=== PATIENT | female | born 1965 | race Caucasian/White ===

== ENCOUNTER → 2019-09-01 14:27 | Outpatient (BNVA) | payer BC, SELFPAY | PROVIDERS: Family Provider Family Medicine; PCP Family Medicine; Visit Provider Nurse Practitioner Family | DX: J43.9 Emphysema, unspecified (principal); J40 Bronchitis, not specified as acute or chronic; J30.89 Other allergic rhinitis; F17.200 Nicotine dependence, unspecified, uncomplicated | CPT/HCPCS: 71046 ==

== ENCOUNTER 2019-11-17 10:29 | Outpatient (CLI) | payer BC, SELFPAY ==
--- NOTE | 2019-11-17 11:00 | USCV_ITS ---
QureshiAkua cheema Age: 54 Gender: F : 1965 Exam Date: 11/17/2019 10:47 Ordering Phys: Aditya Paul Technologist: Audra Padilla Exam Location: [facility] Indication: Right calf pain HISTORY: History of deep venous thrombosis. Right calf pain. PROCEDURES: Examined were the right greater saphenous, common femoral, femoral, profunda, popliteal, posterior tibial veins, and peroneal trunk.. FINDINGS: DVT noted in the RIGHT PTV, soleal vein, and peroneal veins extending from mid calf to posterior knee. No SVT visuzlied at this time. No DVT from the CFV to the popliteal vein. CONCLUSIONS Acute below the knee DVT on the right. Report called at time of exam. Dr. Marisol Graf DO (Electronically Signed) Final Date: 17 November 2019 13:08 S
== END 2019-11-17 10:30 | disposition home or self-care (01) ==
LOC: RAD 10:33 → RADWPI 10:34
PROVIDERS: Family Provider Family Medicine; PCP Nurse Practitioner; Visit Provider Nurse Practitioner
DX: M79.661 Pain in right lower leg (principal); I82.4Z1 Acute embolism and thrombosis of unspecified deep veins of right distal lower extremity
CPT/HCPCS: 93971

== ENCOUNTER → 2021-02-27 11:35 | Outpatient (BNVA) | payer BC, SELFPAY | PROVIDERS: Family Provider Family Medicine; PCP Nurse Practitioner; Visit Provider Nurse Practitioner Family | DX: Z20.822 Contact with and (suspected) exposure to COVID-19 (principal) | CPT/HCPCS: 87635 ==

== ENCOUNTER 2021-05-30 22:07 | Inpatient (IN) | payer MEDICAID, SELFPAY ==
[2021-05-30 22:11] VITALS: BP 149/85; PULSE 93; RESP 16; TEMP 36.6; O2SAT 97; BMI 33.7
--- NOTE | 2021-05-30 22:23 | W.ED.ABDPA2 ---
HPI - Abdominal Pain General: Chief Complaint: Abdominal Pain Stated Complaint: abd pain Time Seen by Provider: 05/30/21 22:10 Source: patient History of Present Illness: HPI narrative: 56-year-old female states been having right upper quadrant abdominal pain over the last 2 days got much worse tonight states pain tonight was an 8 out of 10 worse with movement and palpation she has had nausea. She denies any fevers denies any diarrhea or constipation. Denies any chest pain denies any radiation of the pain. MD elicited complaint: abdominal pain Associated Symptoms: Denies chills, dysuria and fever(s) Review of Systems Const: Denies: fever(s), chills, body aches or change in appetite Eyes: Denies: blurry vision or eye discomfort ENMT: Denies: throat pain or dental pain Card: Denies: chest pain Resp: Denies: dyspnea GI: Reports: abdominal pain : Denies: dysuria Musc: Denies: neck pain or back pain Skin/Breast: Denies: rash Neuro: Denies: headache(s) Psych: Denies: depression Calvin/Lymph: Denies: easy bruising All/Imm: Denies: urticaria PFSH ED PFSH: Medical History Anxiety and depression Hx pulmonary embolism OCD (obsessive compulsive disorder) Osteoarthritis Pernicious anemia Surgical History Hx of tubal ligation Family History Family/Other Diabetes Hypertension Cancer Sister Alcohol abuse Brother Alcohol abuse Social History Smoking and tobacco status: current every day smoker cigarettes Packs smoked per day: 1 Years cigarettes smoked: 25 Second hand smoke exposure: Yes Alcohol intake: never Marital status: Legally Current gender identity: Female Physical Exam Const: COMMON NORMALS: no acute distress, patient oriented x3 and healthy appearing HENMT: COMMON NORMALS: normocephalic and atraumatic HEAD & SCALP: normocephalic and atraumatic Eye: COMMON NORMALS: Equal, round and reactive pupils present and EOMs intact bilaterally PUPIL: Yes Equal, round and reactive pupils present Neck/C-Spine: COMMON NORMALS: full ROM and supple Chest: COMMONS NORMALS: normal inspection of the chest and normal palpation of entire chest wall Resp: COMMON NORMALS: normal respiratory effort, No retractions, No use of accessory muscles and clear to auscultation bilaterally AUSCULTATION: clear to auscultation bilaterally Cardio: COMMON NORMALS: regular rate, regular rhythm and No murmurs present (Cardio) RATE: regular rate RHYTHM: regular rhythm GI: COMMON NORMALS: Normal to inspection, nondistended, normoactive bowel sounds present, Soft to palpation and no masses PALPATION: Yes Soft to palpation and Yes Tenderness to palpation present (GI) Details: RUQ Extremity: COMMON NORMALS: normal to inspection and full ROM Neuro: COMMON NORMALS: patient oriented x3, moves all extremities and no focal motor deficits Psych: COMMON NORMALS: mental status grossly normal, Normal thought process present and cooperative THOUGHT PROCESS: Normal thought process present Skin: COMMON NORMALS: no rashes or lesions noted and no wounds GENERAL SKIN EXAM: no rashes or lesions noted Course Vital Signs: Vital signs: Vital Signs Temperature 97.9 F 05/30/21 22:11 Pulse Rate 74 05/31/21 00:03 Respiratory Rate 18 05/31/21 00:03 Blood Pressure 128/71 05/31/21 00:03 Pulse Oximetry 98 05/31/21 00:03 MDM - Abdominal Pain MDM Narrative: Medical decision making narrative: Patient presents with acute cholecystitis causing her abdominal pain liver enzyme bili Robert is normal no sign of common bile duct obstruction patient started on IV antibiotics spoke to surgeon Dr. Carr and will admit. Lab Data: Labs: Lab Results 05/30/21 05/30/21 05/30/21 22:25 22:29 22:29 WBC 24.5 10^3/uL H 10 ^3/uL (4.0-10.0) RBC 5.02 10^6/uL 10^6 /uL (4.1-5.3) Hgb 15.1 g/dL g/dL (11.5-15.3) Hct 45.3 % % (37.0-47.0) MCV 90.2 fl fl (81-99) MCH 30.1 pg pg (28.0-34.0) MCHC 33.3 g/dL g/dL (30.0-36.0) RDW 13.5 % % (12.1-15.1) Plt Count 209 10^3/cmm 10^3 /cmm (130-400) MPV 11.5 fL H fL (7.4-10.4) Neut % (Auto) 76.2 % % Lymph % (Auto) 13.9 % % [place] % (Auto) 7.6 % % Eos % (Auto) 1.5 % % Baso % (Auto) 0.4 % % Neut # (Auto) 18.67 10^3/uL H 1 0^3/uL (1.8-7.7) Lymph # (Auto) 3.4 10^3/uL 10^3/ uL (0.8-4.8) [place] # (Auto) 1.9 10^3/uL H 10^ 3/uL (0.2-0.9) Eos # (Auto) 0.4 10^3/uL 10^3/ uL (0.0-0.8) Baso # (Auto) 0.1 10^3/uL 10^3/ uL (0.0-0.1) Nucleated RBC % (a uto) 0 % % Nucleated RBCs # 0.0 /100WBC /100W BC Sodium 135 mmol/L L mmol /L (136-145) Potassium 3.8 mmol/L mmol/L (3.5-5.1) Chloride 100 mmol/L mmol/L (98-107) Carbon Dioxide 22 mmol/L mmol/L (22-29) Anion Gap 16.8 (5-19) BUN 10 mg/dL mg/dL (6-20) Creatinine 0.6 mg/dL mg/dL (0.5-0.9) GFR Calculation 104.2 mL/min mL/m in (90-130) Glucose 124 mg/dL H mg/dL (65-115) Calculated Osmolal ity 280 mOsm/kg L mOs m/kg (285-295) Calcium 9.0 mg/dL mg/dL (8.5-10.5) Total Bilirubin 0.6 mg/dL mg/dL (0.15-1.2) AST 14 U/L U/L (0-32) ALT 15 U/L U/L (0-33) Alkaline Phosphata se 98 IU/L IU/L (35-105) Total Protein 6.7 g/dL g/dL (6.6-8.7) Albumin 4.1 g/dL g/dL (3.5-5.2) Globulin 2.6 g/dL g/dL (1.3-4.6) Lipase 14 U/L U/L (13-60) Urine Color Yellow (Yellow) Urine Appearance Clear (CLEAR) Urine pH 6.5 (5-7) Ur Specific Gravit y 1.015 (1.005-1.030) Urine Protein Neg (Negative) Urine Glucose (UA) Norm (Normal) Urine Ketones Negative (Negative) Urine Blood Neg (Negative) Urine Nitrate Negative (Negative) Urine Bilirubin Neg (Negative) Urine Urobilinogen Norm mg/dL mg/dL (Negative) Ur Leukocyte Charity ase Negative (Negative) Imaging Data ^: CT Abd/Pel: Attestation: I personally reviewed and interpreted this imaging study as follows: Radiologist's impression: [address] [address] [address] Scan Report Signed Patient: Akua Qureshi Unit #: [id number] : 1965 Age/Sex: 56 / F ADM Date: 05/30/21 Loc: ER Room/Bed: Attending Dr: Ordering Provider/Ordering MD: Mau Ochoa MD Date of Service: 05/30/21 Procedure(s): CT abdomen pelvis w con* [id number] Accession Number(s): [id number] Report Number: [id number] PROCEDURE INFORMATION: Exam: CT Abdomen And Pelvis With Contrast Exam date and time: 05/30/2021 10:29 PM Age: 56 years old Clinical indication: Nausea and vomiting; Abdominal pain; Generalized; Patient HX: Abd pain with n/v x 3 days TECHNIQUE: Imaging protocol: Computed tomography of the abdomen and pelvis with contrast. Radiation optimization: All CT scans at this facility use at least one of these dose optimization techniques: automated exposure control; mA and/or kV adjustment per patient size (includes targeted exams where dose is matched to clinical indication); or iterative reconstruction. Contrast material: OMNI 300; Contrast volume: 95 ml; Contrast route: INTRAVENOUS (IV); COMPARISON: CTA Chest w Abd/Pel w* 06/09/2015 12:25 AM RADIATION DOSE METRICS: Total DLP (mGy-cm): 1838.94 FINDINGS: Liver: Circumscribed hypodensity in the right liver lobe is too small to characterize but is most likely a cyst. No follow-up imaging is recommended. Gallbladder and bile ducts: 1.6 cm calcified stone in the gallbladder neck. Severe gallbladder wall edema with mucosal enhancement. The bile ducts are normal. Pancreas: Normal. No ductal dilation. Spleen: Normal. No splenomegaly. Adrenal glands: Normal. No mass. Kidneys and ureters: Normal. No hydronephrosis. Stomach and bowel: Mild diverticulosis of the sigmoid colon. No diverticulitis. Appendix: The appendix is visualized and is normal. Intraperitoneal space: Unremarkable. No free air. No significant fluid collection. Vasculature: Unremarkable. No abdominal aortic aneurysm. Lymph nodes: Unremarkable. No enlarged lymph nodes. Urinary bladder: Unremarkable as visualized. Reproductive: Unremarkable as visualized. Bones/joints: Unremarkable. No acute fracture. Soft tissues: Unremarkable. CT/CT abdomen pelvis w con* [id number] IMPRESSION: 1. Acute cholecystitis with gallstone in the gallbladder neck. Radiation Dose CTDIVOL = (mGy): DLP = 1838.94 (mGy-cm) Dictated By: Tyler Baird Signed By: Tyler Baird Signed Date/Time: 05/30/21 0283 EKG Data ^: EKG 1: Attestation: I personally reviewed and interpreted this EKG as follows: EKG interpretation date: 05/30/21 EKG interpretation time: 22:19 Interpretation: nsr hr [address] or t wave abnormalities qrs 85 qtc 402 Discharge Plan Discharge Patient Disposition: Admitted As Inpatient Clinical Impression: Cholecystitis Condition: Stable Coding Level of Care Code ED Technical Testing Engineer for Chg Fwd Exam Comprehensive
--- NOTE | 2021-05-30 22:29 | CTR_ITS ---
PROCEDURE INFORMATION: Exam: CT Abdomen And Pelvis With Contrast Exam date and time: 05/30/2021 10:29 PM Age: 56 years old Clinical indication: Nausea and vomiting; Abdominal pain; Generalized; Patient HX: Abd pain with n/v x 3 days TECHNIQUE: Imaging protocol: Computed tomography of the abdomen and pelvis with contrast. Radiation optimization: All CT scans at this facility use at least one of these dose optimization techniques: automated exposure control; mA and/or kV adjustment per patient size (includes targeted exams where dose is matched to clinical indication); or iterative reconstruction. Contrast material: OMNI 300; Contrast volume: 95 ml; Contrast route: INTRAVENOUS (IV); COMPARISON: CTA Chest w Abd/Pel w* 06/09/2015 12:25 AM RADIATION DOSE METRICS: Total DLP (mGy-cm): 1838.94 FINDINGS: Liver: Circumscribed hypodensity in the right liver lobe is too small to characterize but is most likely a cyst. No follow-up imaging is recommended. Gallbladder and bile ducts: 1.6 cm calcified stone in the gallbladder neck. Severe gallbladder wall edema with mucosal enhancement. The bile ducts are normal. Pancreas: Normal. No ductal dilation. Spleen: Normal. No splenomegaly. Adrenal glands: Normal. No mass. Kidneys and ureters: Normal. No hydronephrosis. Stomach and bowel: Mild diverticulosis of the sigmoid colon. No diverticulitis. Appendix: The appendix is visualized and is normal. Intraperitoneal space: Unremarkable. No free air. No significant fluid collection. Vasculature: Unremarkable. No abdominal aortic aneurysm. Lymph nodes: Unremarkable. No enlarged lymph nodes. Urinary bladder: Unremarkable as visualized. Reproductive: Unremarkable as visualized. Bones/joints: Unremarkable. No acute fracture. Soft tissues: Unremarkable. CT/CT abdomen pelvis w con* [id number] IMPRESSION: 1. Acute cholecystitis with gallstone in the gallbladder neck. Radiation Dose CTDIVOL = (mGy): DLP = 1838.94 (mGy-cm)
[2021-05-30 22:30] LABS: Add Urine Microscopic? NO; Charge for UA Resulting for Rev
[2021-05-30 22:33] LABS: Basophils # 0.1 10^3/uL (0.0-0.1); Basophils % 0.4 %; Eosinophils # 0.4 10^3/uL (0.0-0.8); Eosinophils % 1.5 %; Hematocrit 45.3 % (37.0-47.0); Hemoglobin 15.1 g/dL (11.5-15.3); Lymphocytes # 3.4 10^3/uL (0.8-4.8); Lymphocytes % 13.9 %; Mean Corpuscular HGB Conc 33.3 g/dL (30.0-36.0); Mean Corpuscular Hemoglobin 30.1 pg (28.0-34.0); Mean Corpuscular Volume 90.2 fl (81-99); Mean Platelet Volume 11.5 fL (7.4-10.4); Monocytes # 1.9 10^3/uL (0.2-0.9); Monocytes % 7.6 %; Neutrophils # 18.67 10^3/uL (1.8-7.7); Neutrophils % 76.2 %; Nucleated Red Blood Cells % 0 %; Platelet Count 209 10^3/cmm (130-400); Red Blood Count 5.02 10^6/uL (4.1-5.3); Red Cell Distribution Width 13.5 % (12.1-15.1); White Blood Count 24.5 10^3/uL (4.0-10.0)
[2021-05-30 22:36] VITALS: RESP 18; O2SAT 99
[2021-05-30 22:36] LABS: Bilirubin Urine Neg (Negative); Blood Urine Neg (Negative); Glucose Urine UA Norm (Normal); Ketones Urine Negative (Negative); Leukocyte Esterase Urine Negative (Negative); Nitrate Urine Negative (Negative); Protein Urine Neg (Negative); Specific Gravity, Urine 1.015 (1.005-1.030); Urine Appearance Clear (CLEAR); Urine Color Yellow (Yellow); Urobilinogen Urine Norm (Negative); pH Urine 6.5 (5-7)
[2021-05-30] MEDS: ondansetron 2 mg/ML SDV 2 mL 4 MG IVP (22:36)
[2021-05-30] MEDS: HYDROmorphone 1 mg/mL INJ 1 mL IVP ×2 (22:36→23:58)
[2021-05-30] MEDS: sodium chloride 0.9% 1,000 ML 999 ML IV (22:36)
[2021-05-30] MEDS: iohexol 300 mg/mL 100 mL Btl IV (22:43)
[2021-05-30 22:49] LABS: Alanine Aminotransferase 15 U/L (0-33); Albumin Level 4.1 g/dL (3.5-5.2); Alkaline Phosphatase 98 IU/L (35-105); Anion Gap 16.8 (5-19); Aspartate Amino Transferase 14 U/L (0-32); Blood Urea Nitrogen 10 mg/dL (6-20); Carbon Dioxide 22 mmol/L (22-29); Chloride 100 mmol/L (98-107); Globulin 2.6 g/dL (1.3-4.6); Glomerular Filtration Rate 104.2 mL/min (90-130); Glucose 124 mg/dL (65-115); Lipase 14 U/L (13-60); Osmolality Calculated 280 mOsm/kg (285-295); Potassium 3.8 mmol/L (3.5-5.1); Sodium 135 mmol/L (136-145); Total Bilirubin 0.6 mg/dL (0.15-1.2); Total Protein 6.7 g/dL (6.6-8.7)
[2021-05-30 23:12] LABS: Slide Review Slide Review Perform
[2021-05-30] MEDS: levofloxacin-dextrose 5 % 750 MG/150 ML PREMIX 100 MG IV (23:48)
[2021-05-30 23:58] VITALS: RESP 18; O2SAT 98
[2021-05-31] VITALS (32 sets, daily range): BP systolic 101–161; BP diastolic 65–97; PULSE 74–120; RESP 14–38; TEMP 36.4–37.6; O2SAT 90–99; BMI 34.3
[2021-05-31 00:25] LABS: INR 0.94 (0.8-1.2)
[2021-05-31] MEDS: sodium chloride 0.9% 1,000 ML 100 ML IV (01:30)
[2021-05-31] MEDS: morphine 4 mg/mL SDV 1 mL IVP (02:05)
[2021-05-31] MEDS: ondansetron 2 mg/ML SDV 2 mL 4 MG IVP ×3 (02:06→15:48)
--- NOTE | 2021-05-31 04:20 | P.HP_ITS ---
Providers/Chief Complaint Admitting Physician: Kj Carr MD Primary Care Provider: Aditya Paul, [employer] Chief Complaint: abd pain History of Present Illness Akua Qureshi is a 56 year old female who says that she developed upper abdominal pain that went all the way around to her back on both sides Saturday evening (3 days ago). She had some nausea and vomiting the first night without any evidence of hematemesis. She says the nausea and vomiting have actually improved but her pain has continued to intensify. She does not think she has had a fever but she said she felt a little bit cold yesterday and so she took several warm showers. She has had diarrhea but said it is normal for her to have diarrhea at least 5 days out of a week and this has been going on for year s. She got to the point where the pain was unbearable and so she came into the emergency department. A CAT scan showed changes consistent with acute calculus cholecystitis. The patient says she has not noticed any recent food intolerances. She has not had trouble eating. In short, it does not sound like she has had any kind of reliable history of ongoing biliary colic. I did notice that she was found to have cholelithiasis on a CAT scan back in 2014. Review of Systems General: Reports: 10 or more systems reviewed and unremarkable except in HPI and below Const: Reports: other ( [place] somewhat cold yesterday but never took my temp erature ); Denies: fever(s) GI: Reports: abdominal pain, nausea, vomiting and diarrhea ( Normal for me to usually have this ); Denies: hematemesis or coffee ground emesis Psych: Reports: anxiety and depression Medications/Allergies Home Medications Medication Instructions Recorded Confirmed Last Taken Type melatonin 5 mg capsule mg PO 08/31/20 02/27/21 Unknown History montelukast 10 mg tablet 10 mg PO DAILY #30 tab 08/31/20 02/27/21 Unknown Rx chlorpheniramine maleate 4 mg 4 mg PO Q6H PRN 02/27/21 02/27/21 Unknown History tablet diphenhydramine HCl 25 mg capsule 25 mg PO .hs PRN cap 02/27/21 02/27/21 Unknown History Allergies Allergy/AdvReac Type Severity Reaction Status Date / Time Penicillins Allergy Unknown ALGY-Hives Verified 02/27/21 09:38 amoxicillin Allergy Roxy Verified 05/30/21 22:11 PFSH Acute PFSH: Medical History (Updated 05/31/21 @ 04:23 by Kj Carr MD) Anxiety and depression Hx pulmonary embolism multiple blood clots in the past OCD (obsessive compulsive disorder) Osteoarthritis Pernicious anemia Right calf pain Surgical History (Updated 05/31/21 @ 04:21 by Kj Carr MD) Hx of tubal ligation Pharyngeal abscess Family History Family/Other Diabetes Hypertension Cancer Sister Alcohol abuse Brother Alcohol abuse Social History Smoking and tobacco status: current every day smoker cigarettes Packs smoked per day: 1 Years cigarettes smoked: 25 Second hand smoke exposure: Yes Alcohol intake: never Marital status: Legally Current gender identity: Female Vitals/I&O/Wt Last Vital Signs Temp 97.5 F L 05/31/21 01:19 Pulse 96 05/31/21 01:19 Resp 18 05/31/21 02:05 BP 152/82 05/31/21 01:19 Pulse Ox 96 05/31/21 01:19 05/30/21 05/30/21 05/31/21 14:59 22:59 06:59 Intake Total 1150 / 1150 Balance 1150 / 1150 Weight last 48 hrs Weight 232 lb 6 oz Weight 229 lb Physical Exam Narrative: EXAM NARRATIVE: The patient was encountered in her hospital room. She is on the bed and appears somewhat uncomfortable. She tells me that the hydromorphone she got in the emergency room worked much better for her than the morphine she is getting on the floor. The pupils seem equal. No carotid bruits are heard. The lungs are clear anteriorly. The heart is regular. The abdomen is moderately obese and bowel sounds are few. The patient has her maximum point of tenderness in the right upper quadrant somewhat laterally with a positive Ying's sign. She has mild tenderness in the epigastrium. No obvious masses are palpated anywhere. The extremities reveal no edema. Neurologically the patient appears to be grossly intact. Data : 05/30/21 22:29 05/30/21 22:29 Other Labs: Laboratory Tests 05/30/21 22:29 Total Bilirubin 0.6 AST 14 ALT 15 Alkaline Phosphatase [address] Abd/Pel: Radiologist's impression: CT abdomen/pelvis 05/30/2021 IMPRESSION: 1. Acute cholecystitis with gallstone in the gallbladder neck. A&P Assessment and plan (1) Acute cholecystitis due to biliary calculus: CT reviewed. I agree with the assessment of acute cholecystitis. The patient's exam is certainly consistent with this, as well. I discussed gallbladder disease and gallbladder surgery with the patient in some detail. I have recommended a cholecystectomy. Surgical risks of bleeding, internal organ injury, infection, etc. were all gone over. She seems to understand and is agreeable to proceeding. I will change the patient to hydromorphone for pain control. She already got a dose of Levaquin in the emergency room tonight. The patient will be kept n.p.o. and we will try to get into the operating room as soon as we can today. Status: Acute Attestations Medical Necessity Statement*: Based on my medical assessment, presenting symptoms, medical accuity and consideration of surgical therapy, I expect this patient will require treatment in the hospital for a period spanning at least 2 midnights. Coding Level of Care Code Acute Cook Syrup Maker for Sly Narayanan Diagnoses Acute cholecystitis due to biliary calculus K80.00
[2021-05-31] MEDS: HYDROmorphone 1 mg/mL INJ 1 mL IVP (04:22)
--- NOTE | 2021-05-31 07:47 | P.ANESASSM_ITS ---
Pre-Anesthetic Assessment Pre-Anesthetic Assessment: Height/Weight: Height 1.75 m Weight 105.404 kg Temp Pulse Resp BP Pulse Ox 97.9 F 98 19 H 161/97 96 05/31/21 04:26 05/31/21 04:26 05/31/21 04:26 05/31/21 04:26 05/31/21 04:26 Preop Diagnosis: Cholecystitis Proposed Procedure: Operation Date: 05/31/21 09:00 Proposed Procedures p Laparoscopic Cholecystectomy(Not Applicable) - Kj Carr MD Familial anesthetic complications: None Was Beta Bernardo taken within 24 hours: N/A Was Clonidine taken within 24 hours: N/A Last intake: > 8 hrs, but still vomiting Social: Social History: Tobacco and No alcohol Exam: Pre-Anes Outpt Exam: alert, oriented x 3, clear to auscultation bilaterally and regular rate & rhythm Additional Exam Findings (including area of procedure): HR 103 Airway: Cervical ROM: WNL MP: 3 Dentition: False Pulmonary: Comments: hx PE in past, not on chronic anticoagulation CV/HEM: CV/HEM: Anemia (pernicious) Anesthetic Plan: ASA status: 3 Anesthesia: General Other: RSI Risk of > 500 ml blood loss (7ml/kg in children): No Meds/Allergies Current Medications: Current Medications Generic Name Dose Route Start Last Admin Trade Name Freq PRN Reason Stop Dose Admin Hydromorphone HCl 1 mg 05/31/21 04:15 05/31/21 04:22 Hydromorphone 1 Mg/Ml Inj 1 Ml IVP 1 mg Q2H PRN Administration PAIN Sodium Chloride 1,000 mls @ 100 m ls/hr 05/31/21 00:50 05/31/21 01:30 Sodium Chloride 0.9% IV 100 mls/hr .Q10H JENI Administration Ondansetron HCl 4 mg 05/31/21 00:50 05/31/21 07:41 Ondansetron 2 Mg /Ml Sdv 2 Ml IVP 4 mg Q6H PRN Administration NAUSEA AND VOMITI NG PFSH Anesthesia PFSH: Medical History (Updated 05/31/21 @ 07:47 by Kj Carr MD) Anxiety and depression Diverticulosis Hx pulmonary embolism multiple blood clots in the past OCD (obsessive compulsive disorder) Osteoarthritis Pernicious anemia Right calf pain Surgical History (Updated 05/31/21 @ 04:21 by Kj Carr MD) Hx of tubal ligation Pharyngeal abscess Family History Family/Other Diabetes Hypertension Cancer Sister Alcohol abuse Brother Alcohol abuse Social History Smoking and tobacco status: current every day smoker cigarettes Packs smoked per day: 1 Years cigarettes smoked: 25 Second hand smoke exposure: Yes Alcohol intake: never Marital status: Legally Current gender identity: Female Data Anesthesia CBC & Chem 7: 05/30/21 22:29 05/30/21 22:29 Other Labs: Laboratory Results - last 48 hr 05/30/21 05/30/21 05/30/21 22:25 22:29 22:29 WBC 24.5 H RBC 5.02 Hgb 15.1 Hct 45.3 MCV 90.2 MCH 30.1 MCHC 33.3 RDW 13.5 Plt Count 209 MPV 11.5 H Neut % (Auto) 76.2 Lymph % (Auto) 13.9 [place] % (Auto) 7.6 Eos % (Auto) 1.5 Baso % (Auto) 0.4 Neut # (Auto) 18.67 H Lymph # (Auto) 3.4 [place] # (Auto) 1.9 H Eos # (Auto) 0.4 Baso # (Auto) 0.1 Nucleated RBC % (auto) 0 Nucleated RBCs # 0.0 PT INR Sodium 135 L Potassium 3.8 Chloride 100 Carbon Dioxide 22 Anion Gap 16.8 BUN 10 Creatinine 0.6 GFR Calculation 104.2 Glucose 124 H Calculated Osmolality 280 L Calcium 9.0 Total Bilirubin 0.6 AST 14 ALT 15 Alkaline Phosphatase 98 Total Protein 6.7 Albumin 4.1 Globulin 2.6 Lipase 14 Urine Color Yellow Urine Appearance Clear Urine pH 6.5 Ur Specific [place] 1.015 Urine Protein Neg Urine Glucose (UA) Norm Urine Ketones Negative Urine Blood Neg Urine Nitrate Negative Urine Bilirubin Neg Urine Urobilinogen Norm Ur Leukocyte Esterase Negative 05/30/21 22:29 WBC RBC Hgb Hct MCV MCH MCHC RDW Plt Count MPV Neut % (Auto) Lymph % (Auto) [place] % (Auto) Eos % (Auto) Baso % (Auto) Neut # (Auto) Lymph # (Auto) [place] # (Auto) Eos # (Auto) Baso # (Auto) Nucleated RBC % (auto) Nucleated RBCs # PT 12.90 INR 0.94 Sodium Potassium Chloride Carbon Dioxide Anion Gap BUN Creatinine GFR Calculation Glucose Calculated Osmolality Calcium Total Bilirubin AST ALT Alkaline Phosphatase Total Protein Albumin Globulin Lipase Urine Color Urine Appearance Urine pH Ur Specific [place] Urine Protein Urine Glucose (UA) Urine Ketones Urine Blood Urine Nitrate Urine Bilirubin Urine Urobilinogen Ur Leukocyte Esterase Cardiac Studies: No Data to Display
[2021-05-31] MEDS: sodium chloride 0.9% 1,000 ML 30 ML IV (08:00)
--- NOTE | 2021-05-31 09:46 | P.OP_ITS ---
Operative Report Date of procedure: May 31, 2021 Pre-op Diagnosis: Acute calculus cholecystitis. Post-op diagnosis: same Procedure Done: Laparoscopic cholecystectomy. Specimens removed/disposition: 1. Bile from gallbladder lumen sent for Gram stain and culture. 2. Gallbladder. Surgeon: Kj Carr Anesthesia: General Estimated blood loss (mL): 5 Complications: None. Condition: stable Disposition: PACU Procedure: The patient was brought to the Operating Room and was placed in a supine position on the Operating Room table. General endotracheal anesthesia was induced. The abdomen was prepped and draped in a sterile fashion. A small vertical incision was carried out in the superior aspect of the umbilicus. Blunt dissection was carried out down to the fascia, which was grasped with a Evgeny clamp. A stay suture of 0 Vicryl was placed on either side of the midline and the midline fascia was incised. The underlying peritoneum was opened bluntly and the Bc port was placed directly into the peritoneal cavity and was held in place with the inflatable balloon. The peritoneal cavity was insufflated with carbon dioxide. The laparoscope was used to inspect the abdominal cavity. No gross abnormalities were initially noted. A 5 millimeter port was placed in the epigastrium under direct vision. Two 5-millimeter ports were placed on the right side of the abdomen under direct vision. The omentum was rolled back and the gallbladder was identified. It had changes typical of acute cholecystitis with an inflamed and edematous gallbladder wall. The gallbladder was palpated with a grasper and was found to be very distended. Approximately 50 mL of dark thick bile were aspirated from the gallbladder lumen using a laparoscopic needle. Some of this was sent for Gram stain and culture. The gallbladder was then able to be grasped and elevated. A 5 mm tenaculum grasper had to be obtained in order to grasp and hold the infundibulum, however. Blunt dissection and hydrodissection were carried out in the infundibular region of the gallbladder and the cystic duct and cystic artery were identified. The gallbladder was partially removed from the liver bed using cautery and the spatula to confirm the anatomy before the structures were clipped and divided. All of the tissue was very edematous as expected. The gallbladder was then removed from the liver bed using cautery and the spatula. After the gallbladder had been removed from the liver bed, the laparoscope was moved to the epigastric port and the gallbladder was removed from the peritoneal cavity through the umbilical port site after being placed in a laparoscopic bag. The stay sutures of Vicryl were tied to each other at the umbilicus, closing the defect so that it was airtight. The perihepatic spaces were then extensively irrigated with saline and the liver bed was reinspected. No ongoing problems were seen. The remaining ports were removed from the abdominal wall and the pneumop eritoneum was evacuated. All skin incisions were closed using inverted interrupted sutures of 4-0 Vicryl. Benzoin and Steri-Strips were placed over the incisions and Band-Aids followed. The patient was taken to the Recovery Area in stable condition postoperatively.
--- NOTE | 2021-05-31 09:59 | PC.CHAP ---
Pastoral Care Encounter/Spiritual Assessment Type of Contact [] Declined forensic chemist visit [] Patient/Family/Request visit [] Outpatient visit [] Follow-up visit [] Physician referral [] Code/Alert [x] Routine visit [] Staff referral [] Actively dying [] Patient sleeping [] Family support [] [x] Out of room [] Palliative care [] [] Receiving care in room [] Pre-surgical visit [] Trauma [] Long length of stay [] ICU visit [] Other: Relational/Emotional Strength [] Patient feels connected with others/family/visitors/staff [] Distress [] Loneliness/isolation [] Abandonment Spirituality of Patient [] Person of Prachi [] Attends Sabianism of their Parchi [] Believes in Prayer [] Reads Bible or Congregation materials [] There are Spiritual issues to be addressed Mother'S Helper Interventions [] Prayer [] Active listening [] Non-anxious presence [] Spiritual/emotional support [] Crisis/trauma care [] Spiritual counseling [] Bereavement support [] Provided bereavement packet [] Provided Bible/devotional materials [] Provided toy/stuffed animal, coloring book to patient or family member [] Provided Communion [] Anointing/[place] [] Salvation [] Completed spiritual assessment [] Other: Impact on Illness or Injury [] Angry [] Fearful [] Anxious [] Often cries [] Exhaustion [] Unable to work [] Unable to attend muslim [] Unable to walk/stand [] Unable to read [] Unable to drive [] Unable to eat/drink [] Unable to sleep [] Unable to be with family [] Patient intubated [] Other: Summary Time spent with patient
[2021-05-31] MEDS: fentaNYL 50 mcg/mL INJ 2mL IVP ×2 (10:14→10:26)
[2021-05-31] MEDS: heparin 5,000 unit/mL INJ 1 mL 5000 UNIT SUBCUT ×2 (11:50→22:56)
[2021-05-31] MEDS: D5-NS 0.45% + KCL 20 mEq 20 MEQ/1,000 ML BAG 100 MEQ IV (11:50)
[2021-05-31] MEDS: levofloxacin-dextrose 5 % 500 MG/100 ML PREMIX 100 MG IV (11:59)
[2021-05-31] MEDS: metroNIDAZOLE IV 500 MG/100 ML PREMIX 100 MG IV ×2 (12:00→19:23)
[2021-05-31] MEDS: levalbuterol 0.63 mg/3 mL Neb INHALATION ×4 (13:00→23:14)
--- NOTE | 2021-05-31 14:41 | ANE.PACU2 ---
Inpatient post-anesthesia follow up: Airway intact: Yes Vital signs: Temperature 98.8 F Pulse Rate [Left] 74 Pulse Rate 113 Respiratory Rate 17 Blood Pressure [Le ft Arm] 128/71 Blood Pressure 111/70 Pulse Oximetry 93 Oxygen Delivery Me thod Room Air Oxygen Flow Rate 2 Fraction of Inspir ed Oxygen Hydration adequate: Yes Nausea and vomiting: No Pain level: 2 Mental status: Baseline
--- NOTE | 2021-05-31 15:03 | PC.PHAR ---
pt states she takes care of her own medications-pt states she takes singulair ext med history shows last filled 01/20/21 pt states she [facility]
[2021-05-31] MEDS: HYDROcodone-acetaminophen 5-325 mg Tablet PO ×2 (15:46→20:55)
[2021-05-31] MEDS: famotidine 20 mg/2 mL INJ IVP (21:38)
--- NOTE | 2021-05-31 22:48 | PC.NURSE ---
Patients fluids were turned off during the day d/t patient drinking a lot of fluids, the patients has continue to drink well and is tolerated it ok, the fluids are still not running at this time. Dr. Carr would be ok with this since the patient is drinking well.
[2021-06-01] VITALS: BP 106/56; PULSE 100; RESP 18; TEMP 37; O2SAT 95
[2021-06-01] MEDS: HYDROcodone-acetaminophen 5-325 mg Tablet PO ×2 (02:33→07:53)
[2021-06-01] MEDS: metroNIDAZOLE IV 500 MG/100 ML PREMIX 100 MG IV (03:45)
[2021-06-01 04:00] VITALS: BP 113/74; PULSE 86; RESP 18; TEMP 36.4; O2SAT 99
[2021-06-01 04:06] VITALS: PULSE 85; RESP 16; O2SAT 93
[2021-06-01] MEDS: levalbuterol 0.63 mg/3 mL Neb INHALATION ×2 (04:06→08:22)
[2021-06-01 06:09] LABS: Basophils % 0.2 %; Eosinophils # 0.2 10^3/uL (0.0-0.8); Eosinophils % 0.9 %; Hematocrit 38.1 % (37.0-47.0); Hemoglobin 12.4 g/dL (11.5-15.3); Lymphocytes # 4.2 10^3/uL (0.8-4.8); Lymphocytes % 22.9 %; Mean Corpuscular HGB Conc 32.5 g/dL (30.0-36.0); Mean Corpuscular Hemoglobin 29.7 pg (28.0-34.0); Mean Corpuscular Volume 91.1 fl (81-99); Mean Platelet Volume 12.7 fL (7.4-10.4); Monocytes # 1.6 10^3/uL (0.2-0.9); Monocytes % 8.5 %; Neutrophils # 12.17 10^3/uL (1.8-7.7); Nucleated Red Blood Cells % 0 %; Platelet Count 191 10^3/cmm (130-400); Red Blood Count 4.18 10^6/uL (4.1-5.3); Red Cell Distribution Width 13.8 % (12.1-15.1); White Blood Count 18.2 10^3/uL (4.0-10.0)
[2021-06-01 06:46] LABS: Alanine Aminotransferase 13 U/L (0-33); Albumin Level 3.2 g/dL (3.5-5.2); Alkaline Phosphatase 71 IU/L (35-105); Aspartate Amino Transferase 11 U/L (0-32); Globulin 2.5 g/dL (1.3-4.6); Total Bilirubin 0.2 mg/dL (0.15-1.2); Total Protein 5.7 g/dL (6.6-8.7)
[2021-06-01 06:48] LABS: Anion Gap 12.6 (5-19); Blood Urea Nitrogen 8 mg/dL (6-20); Calcium 8.2 mg/dL (8.5-10.5); Carbon Dioxide 24 mmol/L (22-29); Chloride 107 mmol/L (98-107); Creatinine Clr Calc Pharmacy 138.5543; Glomerular Filtration Rate 104.2 mL/min (90-130); Glucose 123 mg/dL (65-115); Osmolality Calculated 290 mOsm/kg (285-295); Potassium 3.6 mmol/L (3.5-5.1); Sodium 140 mmol/L (136-145)
--- NOTE | 2021-06-01 06:48 | PM.DCS ---
Discharge Providers Date of Admission: 05/31/21 00:10 Date of Discharge: June 01, 2021 Attending Provider at Admission: Kj Carr MD Attending Provider at Discharge: Kj Carr MD Primary Care Provider: SEKOU Vitale Diagnoses at Discharge Discharge Diagnosis (1) Acute cholecystitis due to biliary calculus: Status: Acute Reason for Visit Reason for Visit: abd pain Hospital Course Hospital Course This is a 56-year-old white female who presented to the emergency department with a several day history of upper abdominal pain, nausea and vomiting. Imaging and laboratory studies were consistent with acute calculus cholecystitis. The patient was taken to the operating room and a laparoscopic cholecystectomy was performed. She had changes typical of acute calculus cholecystitis. By the following morning she was already feeling much better and was anxious to go home. She was tolerating an oral diet, passing flatus and was up ambulating. Her white blood cell count had begun to defervesce. LFTs were still essentially normal. She was instructed with respect to wound care, activity limitations, diet, etc. I sent the patient home on 5 more days of levofloxacin. Arrangements will be made for her to follow-up in my office in 1 to 2 weeks. Physical Exam Narrative: EXAM NARRATIVE: Bowel sounds are present. All of the laparoscopic incisions look good. Discharge Data Data Completed and Pending: Completed Studies During Hospitalization Category Date Time Status CT abdomen pelvis w con* [id number] Urge nt Cat Scan 05/30/21 22:29 Completed Pending at discharge Category Date Time Status ES surgery / GI i mages Routine Exams 05/31/21 08:19 Ordered Basic Metabolic P dickson AM LABS Lab 06/01/21 05:33 Received Body Fluid Cultur e & GS Routine Lab 05/31/21 09:00 Results Liver Panel AM LA BS Lab 06/01/21 05:33 Results Pathology: Surgic al [PTH] Routine Pth 05/31/21 10:00 Received Labs from last 24 hours 06/01/21 06/01/21 06/01/21 05:33 05:33 05:33 WBC 18.2 H RBC 4.18 Hgb 12.4 Hct 38.1 MCV 91.1 MCH 29.7 MCHC 32.5 RDW 13.8 Plt Count 191 MPV 12.7 H Neut % (Auto) 67.0 Lymph % (Auto) 22.9 Scott % (Auto) 8.5 Eos % (Auto) 0.9 Baso % (Auto) 0.2 Neut # (Auto) 12.17 H Lymph # (Auto) 4.2 Scott # (Auto) 1.6 H Eos # (Auto) 0.2 Baso # (Auto) 0.0 Nucleated RBC % (a uto) 0 Nucleated RBCs # 0.0 Sodium Pending Potassium Pending Chloride Pending Carbon Dioxide Pending Anion Gap Pending BUN Pending Creatinine Pending GFR Calculation Pending Glucose Pending Calculated Osmolal ity Pending Calcium Pending Total Bilirubin 0.2 Direct Bilirubin 0.20 AST 11 ALT 13 Alkaline Phosphata se 71 Total Protein Pending Albumin Pending Globulin 2.5 Vitals: Last Vital Signs Temp 97.5 F L 06/01/21 04:00 Pulse 85 06/01/21 04:06 Resp 16 06/01/21 04:06 BP 113/74 06/01/21 04:00 Pulse Ox 93 06/01/21 04:06 Discharge Plan Discharge Patient Disposition: Home Condition: Stable Prescriptions: New hydrocodone-acetaminophen 5-325 mg tablet 1 - 2 tab PO Q5H PRN (Reason: pain) Qty: 30 RF: 0 levofloxacin 500 mg tablet 500 mg PO DAILY 5 Days Qty: 5 RF: 0 Continued chlorpheniramine maleate [ChlorTabs] 4 mg tablet 4 mg PO Q6H PRN (Reason: Allergy Symptoms) RF: 0 diphenhydramine HCl [Benadryl] 25 mg capsule 25 mg PO BEDTIME PRN (Reason: Allergy Symptoms) RF: 0 Aleve 220 mg Tablet 440 mg PO Q12H PRN (Reason: Pain) RF: 0 montelukast 10 mg tablet 10 mg PO BEDTIME RF: 0 melatonin 10 mg Tablet 10 mg PO BEDTIME RF: 0 Held acetaminophen [Tylenol Ex Str Rapid Release] 500 mg Tablet 1,500 mg PO Q4H PRN (Reason: Pain) RF: 0 Hold Instructions: Resume on 06/06/21. Do not take any additional acetaminophen/Tylenol with pain medication prescribed today. Discharge Orders: Discharge Order (Routine); Ordered 06/01/21 Ordered By: Kj Carr Referrals: Kj Carr MD [Physician] - 2 weeks (Nursing: Please call Dr. Carr's office ([phone]) and make an appointment for the patient to be seen in 10-14 days.) Aditya Paul, CHIEF DEPUTY CLERK/BAILIFF-C [Primary Care Provider] - Discharge Diet: Advance as tolerated Discharge Activity: Limit activity as instructed Patient Instructions: Opioid Safety Activity Restrictions/Additional Instructions: 1. Discharge to home today. 2. Appointment to see Dr. Carr in 10-14 days as above. 3. Bandages / bandaids off later today, leave Steri-Strip(s) on, may shower. 4. [place] 5/325 1-2 tablets by mouth every 5 hours as needed for pain. #30, no refills. 5. Levofloxacin 500 mg 1 tablet by mouth daily for 5 days. #5, no refills. No lifting over 20 pounds, no repetitive bending or twisting, no strenuous pushing / pulling or other heavy activity. Ambulate regularly. May go up and down steps if needed. Discharge Attestations Time Spent in Discharge Care*: less than 30 min Quality Metrics Clinical Quality Measures During this hospital stay, did patient experience: None Coding Level of Care Code Acute [facility] note Diagnoses Acute cholecystitis due to biliary calculus K80.00
[2021-06-01 08:00] VITALS: BP 128/82; PULSE 81; RESP 18; TEMP 36.3; O2SAT 96
[2021-06-01 08:22] VITALS: PULSE 88; RESP 18; O2SAT 95
--- NOTE | 2021-06-01 10:34 | PC.CHAP ---
Pastoral Care Encounter/Spiritual Assessment Type of Contact [] Declined nuclear security officer visit [] Patient/Family/Request visit [] Outpatient visit [] Follow-up visit [] Physician referral [] Code/Alert [x] Routine visit [] Staff referral [] Actively dying [] Patient sleeping [] Family support [] [] Out of room [] Palliative care [] [x] Receiving care in room [] Pre-surgical visit [] Trauma [] Long length of stay [] ICU visit [] Other: Relational/Emotional Strength [x] Patient feels connected with others/family/visitors/staff [] Distress [] Loneliness/isolation [] Abandonment Spirituality of Patient [x] Person of Prachi [] Attends Sikh of their [place] [x] Believes in Prayer [] Reads Bible or Faith materials [] There are Spiritual issues to be addressed Copy Director Interventions [x] Prayer [x] Active listening [x] Non-anxious presence [x] Spiritual/emotional support [] Crisis/trauma care [x] Spiritual counseling [] Bereavement support [] Provided bereavement packet [] Provided Bible/devotional materials [] Provided toy/stuffed animal, coloring book to patient or family member [] Provided Communion [] Anointing/[place] [] Salvation [] Completed spiritual assessment [] Other: Impact on Illness or Injury [] Angry [] Fearful [x] Anxious [] Often cries [] Exhaustion [] Unable to work [] Unable to attend holiness [] Unable to walk/stand [] Unable to read [] Unable to drive [] Unable to eat/drink [] Unable to sleep [] Unable to be with family [] Patient intubated [] Other: Summary abd pain feeling better has a good attitude is going home Time spent with patient 10 mins
--- NOTE | 2021-06-01 10:49 | PC.NURSE ---
patient verbalizes understanding of discharge instructions, home medications, and follow up appointments.
--- NOTE | 2021-06-01 11:02 | PC.NURSE ---
patient wheeled to private vehicle and discharged with .
[2021-06-01 11:03] VITALS: PULSE 88; RESP 18; O2SAT 95
== END 2021-06-01 11:04 | disposition home or self-care (01) | DRG 419 ==
LOC: ER 23:39 → MEDSURG 05-31 00:11
PROVIDERS: Admitting Provider Surgery; Emergency Provider Emergency Medicine; PCP Nurse Practitioner; Visit Provider Surgery
PROC: 0FT44ZZ Resection of Gallbladder, Percutaneous Endoscopic Approach (ICD-10-PCS; CPT 47562; principal; 2021-05-31 09:00)
DX: K80.00 Calculus of gallbladder with acute cholecystitis without obstruction (principal); D51.0 Vitamin B12 deficiency anemia due to intrinsic factor deficiency; F41.9 Anxiety disorder, unspecified; F32.A Depression, unspecified; F17.210 Nicotine dependence, cigarettes, uncomplicated; Z86.711 Personal history of pulmonary embolism
CPT/HCPCS: 36415; 74177; 80048; 80053; 80076; 81003; 83690; 85025; 85610; 87070; 87075; 87077; 87186; 87205; 88304; 94640; 96365; 96366; 96372; 96375; 96376; 99285; J0330; J0690; J1100; J1170; J1644; J1956; J2270; J2405; J2704; J2710; J3010; J3490; J7030; J7611; J7614; Q9967; S0030